=== PATIENT | female | born 1960 | race Caucasian/White ===

== ENCOUNTER 2024-04-25 10:52 | Inpatient (IN) | payer MEDICARE, OTHER ==
[~2024-04-25] VITALS: Ht 177.8 cm; Wt 72.6 kg
[2024-04-25 11:37] LABS: Source, Urine Clean Catch
[2024-04-25 11:38] LABS: BASOPHILS ABSOLUTE AUTO 0.01 K/mm3 (0.00-0.23); BASOPHILS PERCENT AUTO 0 % (0-2); EOSINOPHILS ABSOLUTE AUTO 0.04 K/mm3 (0.00-0.68); EOSINOPHILS PERCENT AUTO 0 % (0-6); Hematocrit 41.6 % (33.0-51.0); Hemoglobin 13.7 g/dL (11.5-16.0); IMMATURE GRAN ABSOLUTE AUTO 0.04 K/mm3 (0.00-0.10); IMMATURE GRAN PERCENT AUTO 0 % (0-1); LYMPHOCYTES ABSOLUTE AUTO 1.18 K/mm3 (0.84-5.20); LYMPHOCYTES PERCENT AUTO 11 % (21-46); MONOCYTES ABSOLUTE AUTO 0.48 K/mm3 (0.16-1.47); MONOCYTES PERCENT AUTO 4 % (4-13); Mean Corpuscular HGB 32.1 pg (26.0-34.0); Mean Corpuscular HGB Conc 32.9 g/dL (31.5-36.5); Mean Corpuscular Volume 97 fL (80-100); Mean Platelet Volume 9.8 fL (9.1-12.4); NEUTROPHILS PERCENT AUTO 84 % (41-73); Platelet Count 207 K/mm3 (150-400); RDW Coefficient Variation 12.6 % (11.7-14.2); RDW Standard Deviation 45.5 fL (35.1-46.3); Red Blood Cell Count 4.27 M/mm3 (3.80-5.20); White Blood Cell Count 11.15 K/mm3 (4.00-11.30)
[2024-04-25 11:54] LABS: Appearance, Urine Clear (Clear); Bilirubin, Urine Neg (Neg); Blood, Urine 2+ (Neg); Color, Urine Yellow (P-Yellow); Glucose Qualitative, Urine Neg (Neg); Ketones, Urine 2+ (Neg); Leukocyte Esterase, Urine Neg (Neg); Nitrite, Urine Neg (Neg); Protein, Urine 2+ (Neg); Specific Gravity, Urine 1.015 (1.003-1.022); Urobilinogen, Urine NORM (Normal)
[2024-04-25 11:58] LABS: Albumin, Blood 3.3 g/dL (3.4-5.0); Albumin/Globulin Ratio 0.9 (0.8-1.8); Bilirubin, Total 1.1 mg/dL (0.1-1.0); Bun/Creatinine Ratio 10.4 (12.0-20.0); Creatinine, Blood 0.67 mg/dL (0.40-1.00); Globulin, Blood 3.7 g/dL (2.2-4.0); Potassium, Blood 3.8 mmol/L (3.5-5.5)
[2024-04-25 12:06] LABS: Bacteria Rare /hpf; Mucus Light (0-Heavy); Squamous Epithelial Cells Rare /hpf (Few)
[2024-04-25] MEDS ORDERED: Dicyclomine HCl 20 MG Tab PO ONE (13:30)
[2024-04-25] MEDS ORDERED: Acetaminophen 325 MG TABLET PO ONE (13:30)
[2024-04-25] MEDS ORDERED: DICY20 PO (13:36)
[2024-04-25] MEDS ORDERED: ATEN25 PO (15:22)
[2024-04-25] MEDS ORDERED: ATOR10 PO (15:23)
[2024-04-25] MEDS ORDERED: Ondansetron HCl 2 MG / ML 2ML Vial IV PRN ×2 (16:10→18:00)
[2024-04-25] MEDS ORDERED: HYDROmorphone HCl/Pf 1MG SYR IV PRN (16:10)
[2024-04-25] MEDS ORDERED: Ampicillin Sod/Sulbactam Sod 3 GM in NS 100 ML IV ONE (16:10)
[2024-04-25] MEDS ORDERED: Atenolol 25 MG Tab PO SCH (17:00)
[2024-04-25] MEDS ORDERED: FentaNYL Citrate 50 MCG/ML 2 ML Injection IV PRN (17:05)
[2024-04-25] MEDS ORDERED: Acetaminophen 325 MG TABLET PO PRN (17:05)
[2024-04-25] MEDS ORDERED: Sennosides 8.6 MG Tab PO PRN (17:05)
[2024-04-25] MEDS ORDERED: NS 1,000 ML IV SCH (18:00)
[2024-04-25 18:52] VITALS: BP 115/67
--- NOTE | 2024-04-25 18:55 | NUR ---
PT ARRIVED TO THE UNIT FROM ER AT APPROXIMATELY 1850. PT ALERT ORIENTED/INDEPENDENT. PT DENIES PAIN. PT DENIES HAVING ANY IGNITION SOURCES. PT EDUCATED TO USE CALL LIGHT. BEDSIDE REPORT GIVEN TO BIRD LYN.
[2024-04-25 19:36] VITALS: BP 108/63
[2024-04-25] MEDS ORDERED: Lactobacil 2-S.Thermo-Bifido 1 1 Cap PO SCH (21:00)
[2024-04-26] MEDS ORDERED: Ampicillin Sod/Sulbactam Sod 3 GM in NS 100 ML IV SCH
[2024-04-26 04:25] VITALS: BP 102/58
[2024-04-26 04:34] LABS: BASOPHILS ABSOLUTE AUTO 0.02 K/mm3 (0.00-0.23); BASOPHILS PERCENT AUTO 0 % (0-2); EOSINOPHILS ABSOLUTE AUTO 0.08 K/mm3 (0.00-0.68); EOSINOPHILS PERCENT AUTO 1 % (0-6); Hematocrit 34.9 % (33.0-51.0); Hemoglobin 11.5 g/dL (11.5-16.0); IMMATURE GRAN ABSOLUTE AUTO 0.02 K/mm3 (0.00-0.10); IMMATURE GRAN PERCENT AUTO 0 % (0-1); LYMPHOCYTES ABSOLUTE AUTO 1.33 K/mm3 (0.84-5.20); LYMPHOCYTES PERCENT AUTO 20 % (21-46); MONOCYTES ABSOLUTE AUTO 0.34 K/mm3 (0.16-1.47); MONOCYTES PERCENT AUTO 5 % (4-13); Mean Corpuscular HGB 32.1 pg (26.0-34.0); Mean Corpuscular Volume 98 fL (80-100); Mean Platelet Volume 9.8 fL (9.1-12.4); NEUTROPHILS PERCENT AUTO 73 % (41-73); Platelet Count 179 K/mm3 (150-400); RDW Coefficient Variation 12.4 % (11.7-14.2); RDW Standard Deviation 44.8 fL (35.1-46.3); Red Blood Cell Count 3.58 M/mm3 (3.80-5.20); White Blood Cell Count 6.59 K/mm3 (4.00-11.30)
[2024-04-26 04:55] LABS: Albumin, Blood 2.6 g/dL (3.4-5.0); Albumin/Globulin Ratio 0.8 (0.8-1.8); Bilirubin, Total 0.7 mg/dL (0.1-1.0); Bun/Creatinine Ratio 13.1 (12.0-20.0); Calcium, Blood 8.1 mg/dL (8.5-10.1); Creatinine, Blood 0.61 mg/dL (0.40-1.00); Globulin, Blood 3.3 g/dL (2.2-4.0); Potassium, Blood 3.6 mmol/L (3.5-5.5); Total Protein, Blood 5.9 g/dL (6.4-8.2)
--- NOTE | 2024-04-26 05:15 | NUR ---
SHIFT SUMMARY PAIN MANAGED W/ IV FENTANYL PER EMAR. PT RESTED MOST OF SHIFT. NO BMS THIS SHIFT. PT ABLE TO TRANSFER IND TO BR AND VOID APPROPRIATELY. VSS. IV ABX AND FLUIDS GIVEN PER EMAR. PT CALLING APPROPRIATELY.
[2024-04-26 07:21] VITALS: BP 97/44
[2024-04-26] MEDS ORDERED: Piperacillin/Tazobactam Sod 3.375 GM in NS 100 ML IV SCH ×2 (07:29→09:00)
[2024-04-26] MEDS ORDERED: Enoxaparin 40 MG/0.4 ML SYR SC SCH (09:00)
[2024-04-26] MEDS ORDERED: Atorvastatin 10 MG Tab PO SCH (09:00)
[2024-04-26 10:26] VITALS: BP 114/67
[2024-04-26] MEDS ORDERED: NS 1,000 ML IV SCH (12:05)
[2024-04-26 16:06] VITALS: BP 111/55
--- NOTE | 2024-04-26 17:16 | NUR ---
SUMMARY NO ACUTE CHANGES T/O SHIFT. PT HAS C/O OF ECHOLS, MEDICATED PER ORDERS W/TYLENOL AND PROVIDED ICE PACK FOR COMFORT. PT TAKING SMALL AMOUNT CLEAR LIQUIDS W/O DIFFICULTY. HAS DENIED NAUSEA AND REPORTING ABDOMINAL PAIN IMPROVED FROM ADMIT. RESTING W/LIGHTS OFF. CALL LIGHT IN REACH.
[2024-04-26] MEDS ORDERED: Melatonin 3 MG Tab PO PRN (19:15)
[2024-04-26 19:37] VITALS: BP 117/68
[2024-04-27 03:11] VITALS: BP 117/66
--- NOTE | 2024-04-27 05:25 | NUR ---
SHIFT SUMMARY PT PASSING FLATUS, HAS NOT HAD BM THIS SHIFT. NO COMPLAINTS OF ABD PAIN THIS SHIFT, NO N/V. FLUIDS RUNNING PER EMAR. PT ABLE TO REST MOST OF THE NIGHT. VOIDING APPROPRIATELY. CALLING APPROPRIATELY. IV ABX GIVEN PER EMAR.
[2024-04-27 07:18] VITALS: BP 122/64
[2024-04-27 14:41] VITALS: BP 126/69
[2024-04-27] MEDS ORDERED: Melatonin 5 MG Tablet PO PRN (17:00)
[2024-04-27] MEDS ORDERED: PROG100 PO (17:12)
--- NOTE | 2024-04-27 18:27 | NUR ---
SHIFT SUMMARY PT HAS TOLERATED CLEAR LQs & WAS ADVANCED TO FULL LQs FOR DINNER. TOLERATING WELL w/ NO INCREASE IN PAIN OR N/V. UP AMBULATED IN HALLWAYS TODAY, SHOWERED, & IS OVERALL FEELING MUCH BETTER.
[2024-04-27 19:37] VITALS: BP 143/75
[2024-04-28 04:49] LABS: Bun/Creatinine Ratio 8.7 (12.0-20.0); Calcium, Blood 8.5 mg/dL (8.5-10.1); Creatinine, Blood 0.58 mg/dL (0.40-1.00); Potassium, Blood 4.2 mmol/L (3.5-5.5)
--- NOTE | 2024-04-28 05:11 | NUR ---
SHIFT SUMMARY PT SLEPT MOST OF THE NIGHT. IV FLUIDS AND ABX RUNNING ORDERED. VSS. PT REPORTS DECREASE IN ABD DISCOMFORT, LOOSE BMS AND IS VOIDING APPROPRIATELY. USING CALL LIGHT APPROPRIATELY. PAIN MANAGED W/ TYLENOL.
[2024-04-28 06:47] VITALS: BP 131/71
[2024-04-28] MEDS ORDERED: ACET325 PO (13:15)
[2024-04-28] MEDS ORDERED: MELATONIN1010 PO (13:15)
[2024-04-28] MEDS ORDERED: LACT PO (13:16)
[2024-04-28] MEDS ORDERED: AMOCLA875 PO (13:16)
[2024-04-28] MEDS ORDERED: SENN187 PO (13:16)
--- NOTE | 2024-04-28 15:35 | NUR ---
DISCHARGE ARRIVED AT THIS TIME. DECLINES WC OUT. AMBULATES OUT w/ SPOUSE. MEDS FAXED TO [facility] ON [address].
== END 2024-04-28 15:35 | disposition home or self-care (01) | DRG 392 ==
LOC: ER 10:52 → MEDS 18:34 → SURS 18:34
PROVIDERS: Emergency Medicine; Family Medicine; Internal Medicine; ADMIT Family Medicine
DX: K57.20 Diverticulitis of large intestine with perforation and abscess without bleeding (principal); I10 Essential (primary) hypertension; E78.5 Hyperlipidemia, unspecified; Z79.899 Other long term (current) drug therapy; Z90.49 Acquired absence of other specified parts of digestive tract; Z90.710 Acquired absence of both cervix and uterus
CPT/HCPCS: 36415; 74177; 80048; 80053; 81001; 83690; 84484; 85025; 93005; 93010; 94760; 94762; 99285-25; A9270; J0295; J1170; J1650; J2405; J2543; J3010; J7030; Q9967